=== PATIENT | male | born 1955 | race Caucasian/White ===

== ENCOUNTER → 2024-09-17 | Outpatient (CLI) | payer MEDICARE ==
--- NOTE | 2024-09-17 17:02 | HMCIMG ---
LUMBAR W OBLIQUES AND FLEX/EXT REASON: RADICULOPATHY, LUMBAR REGION, SPONDYLOSIS W/O RADICULOPATHY, LUMBAR REGION. COMPARISON: None TECHNIQUE: 6 images of lumbar spine were obtained including oblique views, flexion and extension views. FINDINGS: There is dextroscoliosis of lumbar spine. The space narrowings are seen throughout the lumbar spine. This is worse at L2-3 level. No loss of vertebral height is seen. The study is limited due to large amount of fecal material. IMPRESSION: Findings as described above.
== END | disposition home or self-care (01) ==
LOC: RAH 14:51
PROVIDERS: ATTEND Physician Assistant
DX: M48.061 Spinal stenosis, lumbar region without neurogenic claudication (principal); M41.86 Other forms of scoliosis, lumbar region; M47.816 Spondylosis without myelopathy or radiculopathy, lumbar region; M47.26 Other spondylosis with radiculopathy, lumbar region
CPT/HCPCS: 72110

== ENCOUNTER → 2025-04-26 | Outpatient (CLI) | payer MEDICARE ==
--- NOTE | 2025-04-27 01:47 | HMCIMG ---
EXAM: MR Cervical Spine Without IV Contrast. CLINICAL HISTORY: M54.12 Radiculopathy, cervical region. TECHNIQUE: Magnetic resonance images of the cervical spine without intravenous contrast in multiple planes. Series acquired: 2 - LOCALIZER - TR: 700.0 - TE: 79.9 - ET: 1.0 - Thk: 5.0 300 - SAG T2 FRFSE - TR: 3478.0 - TE: 118.9 - ET: 27.0 - Thk: 3.0 400 - SAG T1 FSE - TR: 453.0 - TE: 16.1 - ET: 4.0 - Thk: 3.0 500 - SAG STIR - TR: 4355.0 - TE: 39.8 - ET: 13.0 - Thk: 3.0 600 - AX T2 FRFSE - TR: 3100.0 - TE: 120.5 - ET: 14.0 - Thk: 3.0 CONTRAST: None. COMPARISON: CR Cervical Spine ??? 01/14/2025. FINDINGS: VERTEBRAE: Preserved vertebral body height. Multilevel degenerative endplate changes with anterior and posterior marginal osteophytes. No compression fracture or marrow replacement lesion. ALIGNMENT: Straightened cervical lordosis with stable 3 mm retrolisthesis of C3 over C4. SPINAL CORD/BRAIN: Cord signal is normal without evidence of myelomalacia. Visualised brainstem structures appear unremarkable. FINDINGS BY LEVEL: C2-C3: Uncovertebral and facet joint degeneration, more pronounced on the right, resulting in right neural foraminal stenosis. No canal stenosis. C3-C4: Severe left facet joint arthrosis with hypertrophy causing 3 mm retrolisthesis of C3 over C4. Left neural foraminal stenosis noted with contact and compression of the exiting left C4 nerve root. No cord signal abnormality. C4-C5: Disc osteophyte complex indenting the ventral thecal sac causing grade I central canal stenosis. Bilateral uncovertebral arthrosis causing bilateral foraminal narrowing with nerve root contact. C5-C6: Diffuse disc osteophyte complex causing grade II spinal canal stenosis with ventral cord indentation and flattening. Mild bilateral foraminal stenosis, more on the right, contacting the exiting nerve roots. C6-C7: Disc osteophyte complex with grade II canal stenosis and ventral cord compression. Mild bilateral foraminal narrowing, more pronounced on the right. C7-T1: Disc desiccation without herniation or stenosis. PARASPINAL SOFT TISSUES: No prevertebral or paraspinal collection.IMPRESSION: 1. Multilevel cervical spondylosis, most severe at C5-C6 and C6-C7 with grade II spinal canal stenosis and ventral cord compression. 2. C3-C4: Left neural foraminal stenosis with compression of the exiting left C4 nerve root. 3. No acute fracture or myelomalacia. 4. Compared with prior radiograph dated 01/14/2025, findings are stable with progression of chronic degenerative changes but no new instability or acute abnormality. /[place]
== END | disposition home or self-care (01) ==
LOC: RAH 09:34
PROVIDERS: ATTEND Physical Medicine & Rehabilitation
DX: M47.22 Other spondylosis with radiculopathy, cervical region (principal); M43.12 Spondylolisthesis, cervical region; M48.02 Spinal stenosis, cervical region; M40.50 Lordosis, unspecified, site unspecified; M25.78 Osteophyte, vertebrae
CPT/HCPCS: 72141